=== PATIENT | male | born 1940 | race Caucasian/White ===

== ENCOUNTER 2018-01-05 12:38 | Emergency (ER) | payer OTHER ==
[~2018-01-05] VITALS: Ht 157.5 cm; Wt 81.7 kg
[~2018-01-05 12:38] MED LIST: BACTRIM DS TAB1 EACH PO; CEPHALEXIN 500500 M1 PO; FISH OIL 1,0001 EAC5; KEFLEX500 MG PO; LISINOPRIL5 MG PO; MEDROLDOSEPACK PO; MIRALAX17 GM PO; MULTIVITAMINS1 EAC7 PO; TRIAMCINOLONE A15 G1 TP; TRIAMCINOLONE A80 G2 TOP; VISTARIL 25 MG25 M1 PO
[2018-01-05 12:48] VITALS: BP 141/58
[2018-01-05] MEDS ORDERED: SINEMET 10-1001 EAC1 PO (12:50)
== END 2018-01-05 13:48 | disposition home or self-care (01) ==
LOC: M.ERS 12:38
DX: S61.411A Laceration without foreign body of right hand, initial encounter (principal); G20 Parkinson's disease; Z90.49 Acquired absence of other specified parts of digestive tract; W01.0XXA Fall on same level from slipping, tripping and stumbling without subsequent striking against object, initial encounter; Y93.89 Activity, other specified; Y92.89 Other specified places as the place of occurrence of the external cause; Y99.8 Other external cause status